=== PATIENT | female | born 1955 | race Caucasian/White ===

== ENCOUNTER 2016-06-19 10:53 | Emergency (ER) | payer MEDICAID ==
[2016-02-21 08:22] VITALS: BMI 33.6
[~2016-06-19 10:53] MED LIST: ADIPEX-P37.5 MG PO; ATIVAN1 MG PO; BUTALBITAL-ASP-1 CAP PO; CATAPRES0.1 MG PO; COMBIVENT RESPIM4 GM INH; CYCLOBENZAPRINE10 MG PO; DEMEROL50 MG PO; HYDROCHLOROTH12.5 M1 PO; INDERAL 40 MG T40 MG PO; INDERAL10 MG PO; IPRAT-ALBUT 0.5-3 ML UPD; NICODERM C1 PATCH .2 TRANSDERM; OMEPRAZOLE20 M1 PO; PLAVIX75 MG PO; PRILOSEC20 MG PO; SPIRIVA18 MCG INH; WELLBUTRIN SR150 MG PO; ZYPREXA10 MG PO
[2016-06-19 11:46] LABS: BASOPHILS 0.6 % (0.0-2.0); EOSINOPHILS 3.7 % (0-7); HEMATOCRIT 42.7 % (36.0-48.0); HEMOGLOBIN 13.8 g/dL (12-16); IMMATURE GRANULOCYTES 0.4 % (0-5); LYMPHOCYTES 26.1 % (15-50); MCH 31.8 pg (26.0-34.0); MCHC 32.3 g/dL (31.0-37.0); MCV 98.4 fL (80.0-100.0); MEAN PLATELET VOLUME 10.6 fL (7.4-10.4); MONOCYTES 9.1 % (2-11); NEUTROPHILS 60.1 % (40-80); PLATELET COUNT 289 10x3/uL (130-400); RBC 4.34 10x6/uL (4.00-5.40); RDW 12.3 % (11.5-14.5); WBC 10.4 10x3/uL (4.8-10.8)
[2016-06-19 12:04] LABS: ALBUMIN 3.2 g/dL (3.4-5.0); ALKALINE PHOSPHATASE 88 U/L (46-116); ALT (SGPT) 22 U/L (10-68); BILIRUBIN - TOTAL 0.37 mg/dL (0.2-1.3); CALC OSMOLALITY 285 mosm/kg (275-300); CALCIUM 8.5 mg/dL (8.5-10.1); CARBON DIOXIDE 28.7 mmol/L (21.0-32.0); CHLORIDE - SERUM 106 mmol/L (98-107); CREATININE - SERUM 0.8 mg/dL (0.6-1.3); GLUCOSE 111 mg/dL (74-106); POTASSIUM - SERUM 3.3 mmol/L (3.5-5.1); PROTEIN - SERUM 7.1 g/dL (6.4-8.2); SODIUM 142 mmol/L (136-145); UREA NITROGEN 17 mg/dL (7-18); eGFR NON AFRICAN AMERICAN 77 mL/min (90-120)
[2016-06-19 13:58] LABS: APPEARANCE HAZY (CLEAR); BILIRUBIN NEGATIVE (NEGATIVE); COLOR YELLOW (YELLOW); GLUCOSE NEGATIVE (NEGATIVE); KETONE NEGATIVE (NEGATIVE); NITRITE NEGATIVE (NEGATIVE); PROTEIN TRACE mg/dL (NEGATIVE); SPECIFIC GRAVITY 1.025 (1.005-1.020); UROBILINOGEN NORMAL (NORMAL)
[2016-06-19 13:59] LABS: BACTERIA MODERATE /hpf (NONE SEEN); LEUKOCYTE ESTERASE TRACE (NEGATIVE); WHITE CELLS - URINE 0-5 /hpf (0-5)
[2016-06-19 14:00] LABS: MUCUS <1+ /lpf (NONE SEEN)
== END 2016-06-19 14:25 | disposition home or self-care (01) ==
LOC: D.ER 10:53
PROVIDERS: Emergency Medicine
DX: I10 Essential (primary) hypertension (principal); Z86.73 Personal history of transient ischemic attack (TIA), and cerebral infarction without residual deficits; J44.9 Chronic obstructive pulmonary disease, unspecified